=== PATIENT | female | born 1975 | race Caucasian/White ===

== ENCOUNTER 2016-11-20 16:24 | Emergency (ER) | payer MEDICAID ==
[2016-11-20 16:51] VITALS: BP 128/72
[2016-11-20 17:13] LABS: % BASOPHILS 0.9 % (0.0-2.0); % EOSINOPHILS 9.9 % (0.0-5.0); % LYMPHOCYTES 27.7 % (20.0-50.0); % MONOCYTES 6.1 % (2.0-10.0); % NEUTROPHILS 55.4 % (40.0-80.0); HEMATOCRIT 32.9 % (35.0-45.0); HEMOGLOBIN 10.8 gm/dL (11.7-15.5); MEAN CELL VOLUME 71.9 fl (81-100); MEAN CORPUSCULAR HEMOGLOBIN 23.7 pg (27.0-31.0); MEAN CORPUSCULAR HGB CONC 32.9 pg (28.0-36.0); MEAN PLATELET VOLUME 8.1 fl; PLATELET COUNT 347 Th/cmm (150-400); RED BLOOD COUNT 4.57 Mil/cmm (3.80-5.10); RED CELL DISTRIBUTION WIDTH 15.9 % (11.5-20.0); WHITE BLOOD COUNT 7.2 Th/cmm (4.8-10.8)
[2016-11-20 17:31] LABS: ALB/GLOB RATIO 1.2 (1.0-1.8); ALKALINE PHOSPHATASE 61 U/L (34-104); ANION GAP 10.5 (7.0-16.0); BILIRUBIN,TOTAL 0.3 mg/dL (0.3-1.0); BUN - UREA NITROGEN 9 mg/dL (7-25); BUN/CREATININE RATIO 11.3; CALCIUM SERUM 9.6 mg/dL (8.6-10.3); CARBON DIOXIDE 24.9 mEq/L (21.0-31.0); CHLORIDE 103 mEq/L (98-107); CREATININE - SERUM 0.8 mg/dL (0.6-1.2); GLUCOSE 112 mg/dL (70-105); POTASSIUM SERUM 3.4 mEq/L (3.5-5.1); SGOT 14 U/L (13-39); SGPT/ALT 8 U/L (7-52); SODIUM SERUM 135 mEq/L (136-145)
[2016-11-20] MEDS ORDERED: Sodium Chloride 0.9% 1,000 ML IV ONE (17:31)
[2016-11-20] MEDS ORDERED: Morphine Sulfate 4 mg/mL 1mL Syr IVP ONE (17:33)
[2016-11-20 17:42] LABS: URINE BILIRUBIN NEGATIVE (NEGATIVE); URINE BLOOD LARGE (NEGATIVE); URINE COLOR RED; URINE GLUCOSE (UA) NEGATIVE (NEGATIVE); URINE KETONE NEGATIVE (NEGATIVE)
[2016-11-20 17:43] LABS: URINE BACTERIA NONE SEEN /hpf (NONE SEEN); URINE EPITHELIAL CELLS NONE SEEN /lpf (FEW); URINE PH 6.5; URINE PROTEIN 100 mg/dL (NEGATIVE); URINE RBC >100 /hpf (0-5); URINE UROBILINOGEN 0.2 E.U./dL (0.2 - 1.0)
--- NOTE | 2016-11-20 17:45 | ED Physician Chart ---
Chief Complaint/HPI - Patient Information Allergies:: Allergies Allergy/AdvReac Type Severity Reaction Status Date / Time No Known Allergies Allergy Verified 11/20/16 16:47 Vitals:: Vital Signs - 8 hr 11/20/16 11/20/16 16:51 16:59 Temp 99.0 F HR 84 RR 16 BP 128/72 128/72 O2 Sat % 98 <ReynaldoslavaGagandeep - Last Filed: 11/20/16 19:26> - Patient Information Date Seen:: 11/20/16 Time Seen:: 17:30 Chief Complaint:: 8.5 WKS, VAG BLEEDING AND PELVIC PAIN. History of Present Illness:: Patient's LMP was 09/24/2016. 6 days ago the patient started having vaginal bleeding accompanied by severe pelvic pain. She went to see her physician today and a test was positive. She was sent to our facility for further evaluation and treatment as indicated. The pain was localized to the lower abdomen and pelvic region in the midline. There was radiation to the low back. know radiation of pain to the left shoulder tip.Patient rated the pain as severe. Character of the pain and cramping. There were no relieving or exacerbating factors. Here patient had moderate vegetal bleeding with no clots. No passage of tissue. Once you Allergies:: Allergies Allergy/AdvReac Type Severity Reaction Status Date / Time No Known Allergies Allergy Verified 11/20/16 16:47 Vitals:: Vital Signs - 8 hr 11/20/16 11/20/16 16:51 16:59 Temp 99.0 F HR 84 RR 16 BP 128/72 128/72 O2 Sat % 98 <Julio C Martinez - Last Filed: 11/21/16 22:19> Review of Systems - Review of Systems General/Constitutional: No fever, No chills, No weakness, No diaphoresis, Loss of appetite Skin: No skin lesions, No rash Head: No headache, No light-headedness Eyes: No loss of vision, No diplopia ENT: No earache, No sore throat, No tinnitus Neck: No neck pain, No stiffness, No mass noted Cardio Vascular: No chest pain, No palpitations, No edema Pulmonary: No SOB, No cough, No sputum GI: No nausea, No vomiting, No diarrhea, Pain, No hematemesis G/U: Dysuria, No frequency, Hematuria [employer] Project [employer]: No vaginal discharge, Abnormal vaginal bleeding, Other (Severe pelvic pain.) Musculoskeletal: Bone or joint pain <Julio C Martinez - Last Filed: 11/21/16 22:19> Past Medical History - Past Medical History Past Medical History: No significant medical hx Social History: Non Smoker, No Alcohol, No Drug Use Surgical History: None <Julio C Martinez - Last Filed: 11/21/16 22:19> Family Medical History - Family Member Mother Ethnicity: Hx Family Cancer: No Hx Family Coronary Artery Disease: No Hx Family Congestive Heart Failure: No Hx Family Hypertension: No Hx Family Stroke: No Hx Family Seizures: No Hx Family Dementia: No Hx Family AIDS: No Hx Family HIV: No Hx Family Tuberculosis: No <Julio C Martinez - Last Filed: 11/21/16 22:19> Physical Exam - Physical Examination General/Constitutional: Well-developed, well-nourished, Alert, Ambulatory Other Gen/Cons comments:: Patient in moderate to severe distress due to pain in the lower abdomen and pelvis. Head: Atraumatic Eyes: Lids, conjuctiva normal, PERRL Skin: Nl inspection, No rash, No skin lesions, No lymphadenopathy ENMT: External ears, nose nl, Lips, teeth, gums nl, Oropharynx nl, Tonsils nl Neck: Nontender, No JVD, No nuchal rigidity, No mass Respiratory: Nl effort/Exclusion, Clear to Auscultation, No Wheeze/Rhonchi/Rales Cardio Vascular: RRR, No murmur, gallop, rubs, NL S1 S2 GI: Normal BS's, Nondistended ( Patient had moderate tenderness in the lower abdomen and especially in the suprapubic region. There was no associated resound regarding.) : No CVA tenderness Extremities: No tenderness or effusion, Full ROM, normal strength in all extremities, No edema Other Extremities comments:: No peripheral edema in the lower extremities. Neuro/Psych: Alert/oriented, Normal sensory exam, Normal motor strength, Judgement/insight normal, Mood normal, No focal deficits <Julio C Martinez - Last Filed: 11/21/16 22:19> Labs/Radiology/EKG Results - Lab Results Results: Laboratory Tests 11/20/16 11/20/1611/20/17 16:50 16:50 17:00 WBC 7.2 RBC 4.57 Hgb 10.8 L Hct 32.9 L MCV 71.9 L MCH 23.7 L MCHC Differential 32.9 RDW 15.9 Plt Count 347 MPV 8.1 Neutrophils % 55.4 Lymphocytes % 27.7 Monocytes % 6.1 Eosinophils % 9.9 H Basophils % 0.9 Sodium Potassium Chloride Carbon Dioxide Anion Gap BUN Creatinine Est GFR ( Amer) Est GFR (Non-Af Amer) BUN/Creatinine Ratio Glucose Calcium Total Bilirubin AST ALT Alkaline Phosphatase Total Protein Albumin Globulin Albumin/Globulin Ratio Beta HCG, Quant Urine Source CLEAN C Urine Color RED Urine Clarity BLOODY H Urine pH 6.5 Ur Specific [place] 1.020 Urine Protein 100 H Urine Glucose (UA) NEGATIVE Urine Ketones NEGATIVE Urine Blood LARGE H Urine Nitrate NEGATIVE Urine Bilirubin NEGATIVE Urine Urobilinogen 0.2 Ur Leukocyte Esterase TRACE H Urine RBC >100 H Urine WBC 2-5 Ur Epithelial Cells NONE SEEN Urine Bacteria NONE SEEN Urine Test POSITIVE 11/20/16 11/20/16 17:00 17:30 WBC RBC Hgb Hct MCV MCH MCHC Differential RDW Plt Count MPV Neutrophils % Lymphocytes % Monocytes % Eosinophils % Basophils % Sodium 135 L Potassium 3.4 L Chloride 103 Carbon Dioxide 24.9 Anion Gap 10.5 BUN 9 Creatinine 0.8 Est GFR ( Amer) > 60.0 Est GFR (Non-Af Amer) > 60.0 BUN/Creatinine Ratio 11.3 Glucose 112 H Calcium 9.6 Total Bilirubin 0.3 AST 14 ALT 8 Alkaline Phosphatase 61 Total Protein 7.9 Albumin 4.3 Globulin 3.6 Albumin/Globulin Ratio 1.2 Beta HCG, Quant 2479 Urine Source Urine Color Urine Clarity Urine pH Ur Specific [place] Urine Protein Urine Glucose (UA) Urine Ketones Urine Blood Urine Nitrate Urine Bilirubin Urine Urobilinogen Ur Leukocyte Esterase Urine RBC Urine WBC Ur Epithelial Cells Urine Bacteria Urine Test - Radiology Results Results: Ultrasound pelvis 3-4 anechoic structure seen in the cervix largest measuring 0.8 x 1.1 x 0.8 cm No IUP seen <Gagandeep Kemp - Last Filed: 11/20/16 19:26> - Lab Results Results: Laboratory Tests 11/20/16 11/20/16 11/20/16 16:50 17:00 17:00 WBC 7.2 RBC 4.57 Hgb 10.8 L Hct 32.9 L MCV 71.9 L MCH 23.7 L MCHC Differential 32.9 RDW 15.9 Plt Count 347 MPV 8.1 Neutrophils % 55.4 Lymphocytes % 27.7 Monocytes % 6.1 Eosinophils % 9.9 H Basophils % 0.9 Sodium 135 L Potassium 3.4 L Chloride 103 Carbon Dioxide 24.9 Anion Gap 10.5 BUN 9 Creatinine 0.8 Est GFR ( Amer) > 60.0 Est GFR (Non-Af Amer) > 60.0 BUN/Creatinine Ratio 11.3 Glucose 112 H Calcium 9.6 Total Bilirubin 0.3 AST 14 ALT 8 Alkaline Phosphatase 61 Total Protein 7.9 Albumin 4.3 Globulin 3.6 Albumin/Globulin Ratio 1.2 Urine Test POSITIVE <Julio C Martinez - Last Filed: 11/21/16 22:19> Assessment - Assessment General Assessment: CASE SUMMARY: this 41-year-old female was referred to the emergency department by her physician for severe pain in the pelvic region, vaginally bleeding and a positive test. Patient was in moderate to severe distress secondary to pain. An ultrasound study was ordered and showed no evidence of an intrauterine fetus. There were no adnexal masses and the ovaries were of normal size. There is no free fluid in the abdomen. Vital signs are stable and the patient had mild anemia. Patient was passed on to Dr. Duran at the change of shift for disposition based on the results of the pelvic ultrasound. <Julio C Martinez - Last Filed: 11/21/16 22:19> ED Septic Shock - . Is Septic Shock (SBP<90, OR Lactate>4 mmol\L) present?: No - <6hrs of presentation: Vital Signs: Vital Signs - 8 hr 11/20/16 11/20/16 16:51 16:59 Temp 99.0 F HR 84 RR 16 BP 128/72 128/72 O2 Sat % 98 <Gagandeep Kemp - Last Filed: 11/20/16 19:26> - . Is Septic Shock (SBP<90, OR Lactate>4 mmol\L) present?: No - <6hrs of presentation: Vital Signs: Vital Signs - 8 hr 11/20/16 11/20/16 16:51 16:59 Temp 99.0 F HR 84 RR 16 BP 128/72 128/72 O2 Sat % 98 <Julio C Martinez - Last Filed: 11/21/16 22:19> Reassessment (Disposition) - Reassessment Reassessment:: The patient's blood pressure was elevated (>120/80) but appears stable without evidence of hypertensive emergency or urgency. The patient was counseled about the risks hypertension urged to pursue outpatient monitoring and therapy within a week with her primary care physician. Patient appears to have a threatened miscarriage at this point. There is what looks like contents that are passing through the cervix. Discussed all the findings with her in detail. She does not currently have a primary care or OB physician. We have advised her to return to the ER within 7 days for repeat hCG. We have also provided return to ER precautions. Patient says she understands and agrees with the plan. - Diagnosis Diagnosis:: Threatened miscarriage Elevated blood pressure without the diagnosis of hypertension - Aftercare/Follow up Instructions Aftercare/Follow-Up Instructions:: Counseled pt regarding lab results/diagnosis & need follow up, Refer to Discharge Instructions - Patient Disposition Discharge/Transfer:: Home Time:: 19:11 Condition at Disposition:: Improved <Gagandeep Kemp - Last Filed: 11/20/16 19:26> ED Discharge Plan <Gagandeep Kemp - Last Filed: 11/20/16 19:26> <Julio C Martinez - Last Filed: 11/21/16 22:19> - Patient Disposition Admit/Discharge/Transfer: PT DISCHARGED HOME Condition at Disposition: Improved Instructions: Threatened Miscarriage, [id number]
[2016-11-20] MEDS ORDERED: Morphine Sulfate 2 mg/mL 1mL Syr ONE (17:47)
--- NOTE | 2016-11-21 12:16 | Diagnostic Imaging Report ---
Ultrasound pelvis HISTORY female with vaginal bleeding. LMP is 09/24/2016 COMPARISON: None Technique: Longitudinal and transverse sonographic sector images of the pelvis were obtained transabdominally and transvaginally. FINDINGS: The uterus measures 12.0 x 6.7 x 7.8 cm. The endometrium measures 7 mm. No intrauterine gestation identified. Anechoic lesions of the cervix are noted the largest measuring 1.1 cm. The right ovary measures 3.2 x 2.1 cm. The left ovary measures 2.5 x 1.3 cm. No evidence of free fluid in the pelvis. IMPRESSION: No intrauterine gestation identified. Given patient's clinical history, findings may be due to an in progress. Note that at this time the the less likely jeter of an ectopic cannot be excluded. As such, clinical correlation and correlation with serial follow-up beta hCGs and short-term follow-up ultrasound is recommended. No evidence of free fluid The endometrium measures 7 mm. Nabothian cysts of the cervix.
== END 2016-11-20 19:29 | disposition home or self-care (01) ==
LOC: ER 16:24
DX: O20.0 Threatened abortion (principal); R03.0 Elevated blood-pressure reading, without diagnosis of hypertension; Z3A.08 8 weeks gestation of pregnancy
CPT/HCPCS: 99285; 96374; 96375; 76801; 86900; 86850; 36415; 86901; 84702; 85025; 81001; 81025; 80053; J2270; J2405